=== PATIENT | female | born 1940 | race Caucasian/White ===

== ENCOUNTER 2017-01-15 07:54 | Day surgery (SDC) | payer OTHER ==
--- NOTE | ~2017-01-15 | EGD ---
EGD REPORT [facility] [address] [place] [address] NAME: RAUL MADISON : [birth year] STATUS : REG [facility]#: [id number] AGE: 76 ADM/REG DATE : 01/15/17 MR#: [id number] REPORT SERV DATE: 01/15/17 DICTATED BY: JOSSIE NUÑEZ DATE: 01/15/17 REPORT STATUS : Draft TRANSCRIBED BY: [facility] DATE: 01/15/17 Endoscopy Center Patient Name: Raul Madison Date of : 1940 Attending MD: RENETTA NUÑEZ MD Procedure Date No Time: 01/15/2017 Procedure: Upper GI endoscopy Indications: Heme positive stool, Chest pain (non cardiac) Referring MD: GABBI PERAZA Medicines: See the Anesthesia note for documentation of the administered medications Complications: No immediate complications. Estimated blood loss: None. Procedure: Pre-Anesthesia Assessment: - ASA Grade Assessment: III - A patient with severe systemic disease. - Prior to the procedure, a History and Physical was performed, and patient medications and allergies were reviewed. The patient's tolerance of previous anesthesia was also reviewed. The risks and benefits of the procedure and the sedation options and risks were discussed with the patient. All questions were answered, and informed consent was obtained. Prior Anticoagulants: The patient has taken no previous anticoagulant or antiplatelet agents. After reviewing the risks and benefits, the patient was deemed in satisfactory condition to undergo the procedure. After obtaining informed consent, the endoscope was passed under direct vision. Throughout the procedure, the patient's blood pressure, pulse, and oxygen saturations were monitored continuously. The GIF H190 [id number] was introduced through the mouth, and advanced to the second part of duodenum. The upper GI endoscopy was accomplished without difficulty. The patient tolerated the procedure well. Findings: The examined duodenum was normal. Diffuse moderate inflammation characterized by congestion (edema), erosions and erythema was found in the gastric antrum. Biopsies were taken with a cold forceps for histology. The cardia and gastric fundus were normal on retroflexion. The examined esophagus was normal. Impression: - Normal examined duodenum. - Gastritis. Biopsied. EGD REPORT [address] [address] NAME: RAUL MADISON : [birth year] STATUS : REG [facility] [place] PAT#: [id number] AGE: 76 ADM/REG DATE : 01/15/17 MR#: [id number] REPORT SERV DATE: 01/15/17 DICTATED BY: JOSSIE NUÑEZ DATE: 01/15/17 REPORT STATUS : Draft TRANSCRIBED BY: [employer] DATE: 01/15/17 - Normal esophagus. Recommendation: - Patient has a contact number available for emergencies. The signs and symptoms of potential delayed complications were discussed with the patient. Return to normal activities tomorrow. Written discharge instructions were provided to the patient. - Regular diet. - Discharge patient to home. - Continue present medications. - Await pathology results. Procedure Code(s): --- Professional --- 42393, Esophagogastroduodenoscopy, flexible, transoral; with biopsy, single or multiple Diagnosis Code(s): --- Professional --- K29.70, Gastritis, unspecified, without bleeding R19.5, Other fecal abnormalities R07.89, Other chest pain CPT copyright 2013 [employer] [place] [employer]. All rights reserved. The codes documented in this report are preliminary and upon paper machine supervisor review may be revised to meet current compliance requirements. RENETTA NUÑEZ MD 01/15/2017 9:34 AM This report has been signed electronically. Number of Addenda: 0 Note Initiated On: 01/15/2017 9:21 AM Scope Withdrawal Time 0 hours 0 minutes 0 seconds [address] [place] [address]
--- NOTE | ~2017-01-15 | EGD ---
EGD REPORT [facility] [address] [place] [address] NAME: RAUL MADISON : [birth year] STATUS : [place] [facility] PAT#: [id number] AGE: 76 ADM/REG DATE : 01/15/17 MR#: [id number] REPORT SERV DATE: 01/15/17 DICTATED BY: JOSSIE NUÑEZ DATE: 01/15/17 REPORT STATUS : Draft TRANSCRIBED BY: [facility] DATE: 01/15/17 Endoscopy Center Patient Name: Raul Madison Date of : 1940 Attending MD: RENETTA NUÑEZ MD Procedure Date No Time: 01/15/2017 Procedure: Colonoscopy Indications: Heme positive stool Referring MD: GABBI PERAZA Medicines: See the Anesthesia note for documentation of the administered medications Complications: No immediate complications. Estimated blood loss: None. Procedure: Pre-Anesthesia Assessment: - ASA Grade Assessment: III - A patient with severe systemic disease. - Prior to the procedure, a History and Physical was performed, and patient medications and allergies were reviewed. The patient's tolerance of previous anesthesia was also reviewed. The risks and benefits of the procedure and the sedation options and risks were discussed with the patient. All questions were answered, and informed consent was obtained. Prior Anticoagulants: The patient has taken no previous anticoagulant or antiplatelet agents. After reviewing the risks and benefits, the patient was deemed in satisfactory condition to undergo the procedure. After I obtained informed consent, the scope was passed under direct vision. Throughout the procedure, the patient's blood pressure, pulse, and oxygen saturations were monitored continuously. The PCF [id number] was introduced through the anus and advanced to the terminal ileum. The ileocecal valve, appendiceal orifice, terminal ileum and rectum were photographed. The entire colon was examined. The colonoscopy was performed without difficulty. The patient tolerated the procedure well. The quality of the bowel preparation was adequate. Findings: The perianal and digital rectal examinations were normal. The terminal ileum appeared normal. A sessile polyp was found in the mid transverse colon. The polyp was 4 mm in size. The polyp was removed with a piecemeal technique using a cold biopsy forceps. Resection and retrieval were complete. Multiple small and large-mouthed diverticula were found in the entire colon. EGD REPORT [address] [place]. [address] NAME: RAUL MADISON : [birth year] STATUS : REG [facility]#: [id number] AGE: 76 ADM/REG DATE : 01/15/17 MR#: [id number] REPORT SERV DATE: 01/15/17 DICTATED BY: JOSSIE NUÑEZ DATE: 01/15/17 REPORT STATUS : Draft TRANSCRIBED BY: [facility] DATE: 01/15/17 Non-bleeding internal hemorrhoids were found during retroflexion and were Grade I (internal hemorrhoids that do not prolapse). No other significant abnormalities were identified in a careful examination of the remainder of the colon. Impression: - The examined portion of the ileum was normal. - One 4 mm polyp in the mid transverse colon. Resected and retrieved. - Diverticulosis in the entire examined colon. - Non-bleeding internal hemorrhoids. Recommendation: - Patient has a contact number available for emergencies. The signs and symptoms of potential delayed complications were discussed with the patient. Return to normal activities tomorrow. Written discharge instructions were provided to the patient. - High fiber diet indefinitely. - Discharge patient to home. - Continue present medications. - Await pathology results. - Repeat colonoscopy is not recommended for screening purposes. Procedure Code(s): --- Professional --- 37724, Colonoscopy, flexible, proximal to splenic flexure; with biopsy, single or multiple Diagnosis Code(s): --- Professional --- K64.0, First degree hemorrhoids K57.30, Diverticulosis of large intestine without perforation or abscess without bleeding D12.3, Benign neoplasm of transverse colon R19.5, Other fecal abnormalities CPT copyright 2013 [employer]. All rights reserved. The codes documented in this report are preliminary and upon meter repair shop supervisor review may be revised to meet current compliance requirements. RENETTA NUÑEZ MD 01/15/2017 9:57 AM This report has been signed electronically. Number of Addenda: 0 Note Initiated On: 01/15/2017 9:20 AM EGD REPORT [facility] [address] [place]. [address] NAME: RAUL MADISON : [birth year] STATUS : REG [facility] PAT#: [id number] AGE: 76 ADM/REG DATE : 01/15/17 MR#: [id number] REPORT SERV DATE: 01/15/17 DICTATED BY: JOSSIE NUÑEZ DATE: 01/15/17 REPORT STATUS : Draft TRANSCRIBED BY: [employer] DATE: 01/15/17 Scope Withdrawal Time 0 hours 10 minutes 48 seconds [address] [place] [address]
[~2017-01-15 07:54] MED LIST: CENTRUM TAB1 TAB PO; CITRACAL PO; CRESTOR20 MG PO; ENABLEX7.5 PO; FERROUS SULF325 M1 PO; GLUCPH PO; HYZAAR 50/12.51 TAB PO; PROZAC PO; TRAZ100 PO; TRAZ50 PO; ZOCOR20 PO
[2017-06-01] MEDS ORDERED: TRAZ50 PO (11:13)
[2017-06-01] MEDS ORDERED: VITAMIN D31000 UNIT PO (11:14)
[2017-06-01] MEDS ORDERED: IMDUR30 PO (11:14)
[2017-06-01] MEDS ORDERED: COLCH6 PO (11:15)
[2017-06-01] MEDS ORDERED: COREG3 PO (11:15)
[2017-06-01] MEDS ORDERED: L20 PO (11:15)
[2017-06-01] MEDS ORDERED: ASAB PO (11:16)
[2017-06-02] MEDS ORDERED: PLAVIX PO (17:16)
[2017-06-02] MEDS ORDERED: NTG150 SL (17:17)
== END 2017-01-15 23:59 | disposition home or self-care (01) ==
LOC: DMU 07:54
PROVIDERS: Internal Medicine Gastroenterology
PROC: 0DBL8ZZ Excision of Transverse Colon, Via Natural or Artificial Opening Endoscopic (ICD-10-PCS; principal; 2017-01-15 09:30)
PROC: 0DB68ZX Excision of Stomach, Via Natural or Artificial Opening Endoscopic, Diagnostic (ICD-10-PCS; 2017-01-15 09:30)
DX: K29.50 Unspecified chronic gastritis without bleeding (principal); D12.3 Benign neoplasm of transverse colon; K64.0 First degree hemorrhoids; K57.30 Diverticulosis of large intestine without perforation or abscess without bleeding; R19.5 Other fecal abnormalities; R07.89 Other chest pain; I10 Essential (primary) hypertension; E78.00 Pure hypercholesterolemia, unspecified; E11.9 Type 2 diabetes mellitus without complications; G47.33 Obstructive sleep apnea (adult) (pediatric); Z79.899 Other long term (current) drug therapy; Z79.891 Long term (current) use of opiate analgesic; Z88.5 Allergy status to narcotic agent
CPT/HCPCS: 82962; 88305